=== PATIENT | male | born 1935 | race Caucasian/White ===

== ENCOUNTER 2024-01-07 19:43 | Inpatient (IN) | payer MEDICARE ==
[~2024-01-07 19:43] MED LIST: Iopamidol-370 76% 500 ML MDV (1 ML CHARGE) ONE
[2024-01-07 21:48] LABS: Hemoglobin 9.8 g/dL (14.0-18.0); Mean Corpuscular HGB CONC 32.7 g/dL (32.0-36.0); Mean Corpuscular Hemoglobin 30.6 pg (27.0-31.0); Mean Corpuscular Volume 93.8 fL (78.0-98.0); Mean Platelet Volume 10.5 fL (7.4-10.4); Platelet Count 159 10x3/uL (130-400); RBC Distribution Width 11.7 % (11.5-14.5)
[2024-01-07] MEDS ORDERED: Cefepime 2 GM VIAL ONE (21:55)
[2024-01-07 22:07] LABS: Band 13 % (5-11); Eosinophils 3 % (0-10); Large Platelets 7.9 % (0-5); Lymphocytes 6 % (21-51); Neutrophil 77 % (42-75); Platelet Adequacy Comment Platelets Normal; RBC Morphology Within Normal Limits
[2024-01-07 22:14] LABS: Critical Call Chem Troponin I NUR.EM9@2214; Troponin I 0.211 ng/mL (< 0.028)
[2024-01-07 22:15] LABS: ALT (SGPT) 11 U/L (8-55); AST (SGOT) 35 U/L (5-34); Alkaline Phosphatase 62 U/L (40-110); Anion Gap 15 mmol/L (10-20); BUN (Urea Nitrogen) 25 mg/dL (8.4-25.7); Bilirubin, Total 0.4 mg/dL (0.2-1.2); Calc. Creatinine Clearance 0 mL/min (70-130); Calcium 7.8 mg/dL (7.8-10.44); Carbon Dioxide 16 mmol/L (23-31); Chloride 111 mmol/L (98-107); Estimated GFR 49; Globulin 2.8 g/dL (2.4-3.5); Glucose 276 mg/dL (83-110); Lipase 8 U/L (8-78); Magnesium 1.6 mg/dL (1.6-2.6); Potassium 4.8 mmol/L (3.5-5.1); Protein, Total 5.8 g/dL (5.8-8.1); Sodium 137 mmol/L (136-145)
[2024-01-07] MEDS ORDERED: Aspirin Chewable 81 MG TAB ONE (22:33)
[2024-01-07 23:23] LABS: Influenza A by NAA Not Detected (NotDetected); Influenza B by NAA Not Detected (NotDetected); SARS-CoV-2 NAA Rapid Test Not Detected (NotDetected)
[2024-01-08] MEDS ORDERED: Ondansetron ODT 4 MG TAB PO PRN (00:17)
[2024-01-08] MEDS ORDERED: Ondansetron PF 4 MG/2 ML Vial IVP PRN (00:17)
[2024-01-08] MEDS ORDERED: Dextrose 5% in Water 1,000 ML IV PRN (00:17)
[2024-01-08] MEDS ORDERED: Glucagon 1 MG/ML KIT IM PRN (00:17)
[2024-01-08] MEDS ORDERED: Dextrose 50% Abboject 50 ML SYRINGE SLOW IVP PRN (00:17)
[2024-01-08] MEDS ORDERED: Acetaminophen 325 MG TAB PO PRN (00:17)
[2024-01-08 00:43] LABS: Bacteria/HPF None Seen HPF (None Seen); Bilirubin Negative (Negative); Blood, Urine 2+ (Negative); CAUTI Indications for Culture Dysuria,urgency,freq; Clarity Clear (Clear); Glucose, Urine (Dipstick) Greater than 1000 mg/dL (Negative); Ketone, Urine Trace mg/dL (Negative); Leukocyte Negative Leu/uL (Negative); Nitrite Negative (Negative); Protein, Urine (Dipstick) 10 mg/dL (Neg-Trace); Specific Gravity, Urine 1.021 (1.002-1.036); Squamous Epithelial None Seen HPF (0-3); Urobilinogen Normal mg/dL (Less than 2); WBC/HPF 0-3 HPF (0-3)
[2024-01-08 00:45] LABS: Urine Culture Reflex No No
[2024-01-08 01:43] VITALS: BMI 25.5
[2024-01-08] MEDS: Lactated Ringer's 1,000 ML IV SCH (02:07)
[2024-01-08] MEDS: Vancomycin (BATCH) 2 GM in Premix 1 BAG IVPB SCH (02:08)
[2024-01-08 02:30] LABS: Lactic Acid 1.7 mmol/L (0.5-2.2)
[2024-01-08 02:51] LABS: Critical Call Chem Troponin I NUR.RS8@0250; Troponin I 0.958 ng/mL (< 0.028)
[2024-01-08 05:00] LABS: Anion Gap 15 mmol/L (10-20); BUN (Urea Nitrogen) 27 mg/dL (8.4-25.7); Calc. Creatinine Clearance 40 mL/min (70-130); Carbon Dioxide 19 mmol/L (23-31); Chloride 108 mmol/L (98-107); Estimated GFR 43; Glucose 278 mg/dL (83-110); Iron 6 ug/dL (65-175); Iron Binding Capacity, Total 203 mcg/dL (261-462); Potassium 3.9 mmol/L (3.5-5.1); Sodium 138 mmol/L (136-145)
[2024-01-08 05:01] LABS: Hematocrit 28.4 % (42.0-52.0); Hemoglobin 9.1 g/dL (14.0-18.0); Mean Corpuscular Hemoglobin 30.6 pg (27.0-31.0); Mean Corpuscular Volume 95.6 fL (78.0-98.0); Mean Platelet Volume 10.7 fL (7.4-10.4); Platelet Count 146 10x3/uL (130-400); Red Blood Cell (RBC) Count 2.97 mill/uL (4.70-6.10)
[2024-01-08 05:28] LABS: Ferritin 368.27 ng/mL (22-322)
[2024-01-08 05:29] LABS: Critical Call Chem Troponin I RESULT DECREASING; Troponin I 0.851 ng/mL (< 0.028)
[2024-01-08 05:35] LABS: Band 24 % (5-11); Lymphocytes 2 % (21-51); Metamyelocyte 1 % (0-0); Monocytes 1 % (0-10); Neutrophil 72 % (42-75); Platelet Adequacy Comment Platelets Normal; RBC Morphology Within Normal Limits
[2024-01-08] MEDS: HumaLOG 300 UNITS/3 ML VIAL SC PRN ×2 (06:20→21:39)
[2024-01-08] MEDS: Cefepime 1 GM in Sodium Chloride 0.9% 100 ML IVPB SCH (09:43)
[2024-01-08] MEDS: Aspirin 81 mg Enteric Coated Tablet PO SCH (11:58)
[2024-01-08] MEDS: HumaLOG 300 UNITS/3 ML VIAL SC SCH (17:00)
[2024-01-08] MEDS: Insulin Glargine 30 UNITS/0.3 ML VIAL SC SCH (21:31)
[2024-01-09 04:49] LABS: Hematocrit 26.8 % (42.0-52.0); Hemoglobin 8.7 g/dL (14.0-18.0); Mean Corpuscular HGB CONC 32.5 g/dL (32.0-36.0); Mean Corpuscular Volume 92.4 fL (78.0-98.0); Mean Platelet Volume 11.3 fL (7.4-10.4); Platelet Count 137 10x3/uL (130-400); RBC Distribution Width 12.3 % (11.5-14.5)
[2024-01-09 05:16] LABS: Band 23 % (5-11); Eosinophils 1 % (0-10); Lymphocytes 1 % (21-51); Monocytes 1 % (0-10); Neutrophil 74 % (42-75); Platelet Adequacy Comment Platelets Normal; RBC Morphology Within Normal Limits; Smudge Cells 4.9 %
[2024-01-09 05:18] LABS: Anion Gap 14 mmol/L (10-20); BUN (Urea Nitrogen) 41 mg/dL (8.4-25.7); Calc. Creatinine Clearance 40 mL/min (70-130); Calcium 8.3 mg/dL (7.8-10.44); Carbon Dioxide 20 mmol/L (23-31); Chloride 104 mmol/L (98-107); Estimated GFR 44; Glucose 215 mg/dL (83-110); Potassium 4.7 mmol/L (3.5-5.1); Sodium 133 mmol/L (136-145)
[2024-01-09] MEDS: Levothyroxine Sodium 25 MCG TAB PO SCH (05:39)
[2024-01-09] MEDS: Aspirin 81 mg Enteric Coated Tablet PO SCH (09:05)
[2024-01-09] MEDS: Tamsulosin HCl 0.4 MG CAP PO SCH (09:05)
[2024-01-09] MEDS: Meclizine HCl 25 MG TAB PO SCH (09:05)
[2024-01-09] MEDS ORDERED: Docusate 100 MG CAP PO PRN (14:19)
[2024-01-09] MEDS: Lisinopril 20 MG TAB PO SCH (14:34)
[2024-01-10 06:08] LABS: Hemoglobin 9.5 g/dL (14.0-18.0); Mean Corpuscular HGB CONC 32.8 g/dL (32.0-36.0); Mean Corpuscular Hemoglobin 29.6 pg (27.0-31.0); Mean Corpuscular Volume 90.3 fL (78.0-98.0); Mean Platelet Volume 11.6 fL (7.4-10.4); Platelet Count 166 10x3/uL (130-400); RBC Distribution Width 12.2 % (11.5-14.5); Red Blood Cell (RBC) Count 3.21 mill/uL (4.70-6.10)
[2024-01-10 06:17] LABS: Anion Gap 10 mmol/L (10-20); BUN (Urea Nitrogen) 35 mg/dL (8.4-25.7); Calc. Creatinine Clearance 60 mL/min (70-130); Calcium 8.8 mg/dL (7.8-10.44); Carbon Dioxide 21 mmol/L (23-31); Chloride 106 mmol/L (98-107); Estimated GFR 71; Glucose 148 mg/dL (83-110); Potassium 4.4 mmol/L (3.5-5.1); Sodium 133 mmol/L (136-145)
[2024-01-10 06:36] LABS: Band 5 % (5-11); Lymphocytes 1 % (21-51); Monocytes 1 % (0-10); Neutrophil 93 % (42-75); Platelet Adequacy Comment Platelets Normal; Polychromasia SLIGHT = 2-3 cells HPF (0-2)
[2024-01-10] MEDS: Lisinopril 20 MG TAB PO SCH (08:48)
[2024-01-10] MEDS: Lactated Ringer's 1,000 ML IV SCH (18:22)
[2024-01-11 05:57] LABS: #Basophils 0.06 10x3/uL (0.0-0.2); %Basophils 0.5 % (0.0-1.0); %Eosinophils 4.1 % (0.0-10.0); %Lymphocytes 6.9 % (21.0-51.0); %Neutrophils 81.4 % (42.0-75.0); Hematocrit 29.1 % (42.0-52.0); Hemoglobin 9.6 g/dL (14.0-18.0); Mean Corpuscular Hemoglobin 30.3 pg (27.0-31.0); Mean Corpuscular Volume 91.8 fL (78.0-98.0); Platelet Count 167 10x3/uL (130-400); RBC Distribution Width 12.2 % (11.5-14.5); Red Blood Cell (RBC) Count 3.17 mill/uL (4.70-6.10)
[2024-01-11 06:20] LABS: Anion Gap 10 mmol/L (10-20); BUN (Urea Nitrogen) 25 mg/dL (8.4-25.7); Calc. Creatinine Clearance 71 mL/min (70-130); Calcium 8.2 mg/dL (7.8-10.44); Carbon Dioxide 24 mmol/L (23-31); Chloride 103 mmol/L (98-107); Estimated GFR 84; Glucose 142 mg/dL (83-110); Potassium 3.8 mmol/L (3.5-5.1); Sodium 133 mmol/L (136-145)
[2024-01-11] MEDS: Ferrous Sulfate 325 MG TAB PO SCH (08:31)
[2024-01-12 04:35] VITALS: TEMP 98.1
[2024-01-12 05:40] LABS: #Basophils 0.04 10x3/uL (0.0-0.2); %Basophils 0.4 % (0.0-1.0); %Eosinophils 6.4 % (0.0-10.0); %Lymphocytes 14.6 % (21.0-51.0); %Monocytes 10.8 % (0.0-10.0); %Neutrophils 64.3 % (42.0-75.0); Hematocrit 29.5 % (42.0-52.0); Hemoglobin 9.7 g/dL (14.0-18.0); Mean Corpuscular HGB CONC 32.9 g/dL (32.0-36.0); Mean Corpuscular Hemoglobin 30.2 pg (27.0-31.0); Mean Corpuscular Volume 91.9 fL (78.0-98.0); Mean Platelet Volume 10.9 fL (7.4-10.4); Platelet Count 172 10x3/uL (130-400); RBC Distribution Width 12.2 % (11.5-14.5); Red Blood Cell (RBC) Count 3.21 mill/uL (4.70-6.10)
[2024-01-12 05:58] LABS: Anion Gap 12 mmol/L (10-20); BUN (Urea Nitrogen) 17 mg/dL (8.4-25.7); Calc. Creatinine Clearance 72 mL/min (70-130); Calcium 8.5 mg/dL (7.8-10.44); Carbon Dioxide 26 mmol/L (23-31); Chloride 104 mmol/L (98-107); Estimated GFR 84; Glucose 133 mg/dL (83-110); Potassium 3.9 mmol/L (3.5-5.1); Sodium 138 mmol/L (136-145)
[2024-01-12] MEDS: Polyethylene Glycol 3350 17 GM Packet PO SCH (06:34)
[2024-01-12] MEDS: Amlodipine 10 MG TAB PO SCH (08:37)
[2024-01-12] MEDS: Fish Oil 1,000 MG CAP PO SCH (08:38)
[2024-01-12] MEDS: Senokot S 8.6-50 MG TAB PO SCH (08:39)
[2024-01-12 11:44] VITALS: BP 151/72
[2024-01-12] MEDS ORDERED: Ciprofloxacin 500 MG TAB PO SCH (20:00)
== END 2024-01-12 13:37 | disposition home or self-care (01) | DRG 871 ==
LOC: ERS 19:43 → 2NO 23:58 → SURG A 01-09 18:04
PROVIDERS: ADMIT Internal Medicine; ATTEND Internal Medicine
DX: A41.50 Gram-negative sepsis, unspecified (principal); I21.A1 Myocardial infarction type 2; E87.20 Acidosis, unspecified; N17.9 Acute kidney failure, unspecified; N10 Acute pyelonephritis; D50.9 Iron deficiency anemia, unspecified; Z66 Do not resuscitate; E10.9 Type 1 diabetes mellitus without complications; I10 Essential (primary) hypertension; Z79.4 Long term (current) use of insulin
CPT/HCPCS: 36415; 36416; 51701; 71045; 74177; 80048; 80053; 81001; 82607; 82728; 83540; 83550; 83605; 83690; 83735; 83880; 84145; 84484; 85025; 87040; 87077; 87149; 87186; 93005; 93306; 96365; 96375; J0692; J1815; J3370; J3490; J7120; Q9967

== ENCOUNTER 2024-06-23 08:14 | Outpatient (CLI) | payer MEDICARE | END 2024-06-23 08:15 | disposition home or self-care (01) | LOC: ULT 08:14 | PROVIDERS: ATTEND Urology | DX: R33.9 Retention of urine, unspecified (principal); R39.198 Other difficulties with micturition | CPT/HCPCS: 76770 ==